=== PATIENT | female | born 1985 | race Caucasian/White ===

== ENCOUNTER 2019-02-06 10:10 | Emergency (ER) | payer OTHER ==
[~2019-02-06] VITALS: Ht 167.6 cm; Wt 86.2 kg
[2019-02-06 10:11] VITALS: BP 143/76
[2019-02-06] MEDS ORDERED: KEFLEX500 M1 PO (11:03)
[2019-02-06] MEDS ORDERED: PREDNISONE 20 M20 M1 PO (11:03)
== END 2019-02-06 11:13 | disposition home or self-care (01) ==
LOC: ER 10:10
DX: S70.362A Insect bite (nonvenomous), left thigh, initial encounter (principal); S70.361A Insect bite (nonvenomous), right thigh, initial encounter; T78.40XA Allergy, unspecified, initial encounter; W57.XXXA Bitten or stung by nonvenomous insect and other nonvenomous arthropods, initial encounter; Y93.89 Activity, other specified; Y92.89 Other specified places as the place of occurrence of the external cause; Y99.8 Other external cause status